=== PATIENT | male | born 1970 | race Two or more races ===

== ENCOUNTER 2016-03-11 01:54 | Emergency (ER) | payer OTHER ==
[~2016-03-11] VITALS: Ht 167.6 cm; Wt 81.6 kg
--- NOTE | 2016-03-11 02:14 | Emergency Room Report ---
History of Present Illness General Chief Complaint: Laceration Source: Patient, EMS Present Illness HPI Is a 45-year-old male with no significant past medical history he presents with chief complaint of head injury. he was at a [employer]. Is drinking tonight and bumped head with his . Fell backward hit his head on the ground. No loss of consciousness. He sustained a laceration to his scalp in left route area. Complaining of pain in that area. No other complaint. Allergies: Coded Allergies: No Known Allergies (Unverified , 03/11/16) Patient History Past Medical History: see triage record, old chart reviewed Past Surgical History: other Pertinent Family History: none Social History: Reports: alcohol use Immunizations: other Reviewed Nursing Documentation: PMH: Agreed, PSxH: Agreed Nursing Documentation-PMH Past Medical History: No Stated History Review of Systems Eye: Denies: blurred vision, eye pain ENT: Denies: ear pain, nose congestion, throat swelling Respiratory: Denies: cough, shortness of breath Cardiovascular: Denies: chest pain, palpitations Gastrointestinal: Denies: abdominal pain, diarrhea, nausea, vomiting Musculoskeletal: Denies: back pain, joint pain Skin: Denies: rash Neurological: Denies: headache, numbness Endocrine: Denies: increased thirst, increased urine Hematologic/Lymphatic: Denies: easy bruising All Other Systems: negative except mentioned in HPI Physical Exam Vital Signs Date Time Temp Pulse Resp B/P Pulse Ox O2 Delivery O2 Flow Rate FiO2 03/11/16 01:58 98.2 76 16 116/77 99 Room Air vitals normal Sp02 EP Interpretation: reviewed, normal General Appearance: well appearing, no apparent distress, alert Head: normocephalic, other - 5 cm lac to right parietal area. no fb. 3cm lac over left eyelid/eyebrow area. Eyes: left eye other - left periorbital echymosis. Visual acuity to left eye is grossly intact. He is able to see and count my fingers., bilateral eye EOMI , bilateral eye PERRL ENT: hearing grossly normal, normal pharynx Neck: full range of motion, supple, no meningismus Respiratory: chest non-tender, lungs clear, normal breath sounds Cardiovascular #1: regular rate, rhythm, no murmur Gastrointestinal: normal bowel sounds, non tender, no mass, no organomegaly, no bruit, non-distended Musculoskeletal: back normal, normal range of motion Neurologic: alert, oriented x3 Psychiatric: mood/affect normal Skin: warm/dry Procedures Critical Care Time Critical Care Time Critical care is mandated in this patient who presented with trauma and has a retrobulbar hematoma that can be eye sight threatening. Patient require my urgent intervention to attenuate the risks of loss of vision. Critical care time is 35 minutes excluding any reportable procedure. Critical care time included evaluation, multiple reevaluation, looking at old charts, interpreting laboratory and diagnostic data, discussing case with patient and family and consultants, and charting. Laceration/Wound Repair Laceration/Wound Repair : Consent: Verbal Wound Location: head, face Wound's Depth, Shape: linear Wound Length (cm): 7 Wound Explored: clean Irrigated w/ Saline (ccs): 1000 Betadine Prep?: Yes Anesthesia: 1% Lidocaine Volume Anesthetic (ccs): 1 Wound Repaired With: mayo Suture Size/Type: 6:0, proline Number of Sutures: 3 Sterile Dressing Applied?: Yes Patient Tolerated: Well Complications: None Progress Scalp laceration measuring 5 cm. I stapled it 6 mayo. Eyebrow laceration measuring 2 cm. I sutured it with 3 interrupted 6-0 Prolene sutures. Patient tolerated procedure without a problem. Medical Decision Making Diagnostic Impression: Primary Impression: Head injury, acute, without loss of consciousness Qualified Codes: S09.90XA - Unspecified injury of head, initial encounter Additional Impressions: Scalp laceration Qualified Codes: S01.01XA - Laceration without foreign body of scalp, initial encounter Periorbital hematoma of left eye HEMORRHAGE OF LEFT ORBIT Alcohol intoxication Qualified Codes: F10.120 - Alcohol abuse with intoxication, uncomplicated Laceration of left eyebrow without complication Qualified Codes: S01.112A - Laceration without foreign body of left eyelid and periocular area, initial encounter ER Course Patient present with a fall and head injury. He has evidence of retrobulbar hematoma. This can be a ophthalmologic emergency. I called [facility] for transfer. Initially a Dr. Ly called back but it was for his [place]. She will not be transferred. So far we have been waiting for them to call back. It did do not call back in a timely manner, will transfer to [place] for high level of care. CT/MRI/US Diagnostic Results CT/MRI/US Diagnostic Results : Imaging Test Ordered: CT head Impression read by radiologist. No intracranial bleed. Evidence of hematoma posterior to the left globe at the insertion of the optic nerve. Last Vital Signs Date Time Temp Pulse Resp B/P Pulse Ox O2 Delivery O2 Flow Rate FiO2 03/11/16 01:58 98.2 76 16 116/77 99 Room Air Status: improved Disposition: DISC/XFER TO [facility] Condition: Serious DOMINIK CERVANTES M.D. Mar 11, 2016 02:14
[2016-03-11] MEDS ORDERED: TdaP Vaccine 0.5ml Syr IM ONE (02:15)
[2016-03-11 02:16] VITALS: BP 116/77
[2016-03-11 03:00] VITALS: BP 111/76
[2016-03-11 04:00] VITALS: BP 107/70
[2016-03-11 04:04] LABS: MEAN CORPUSCULAR HEMOGLOBIN 32.2 PG (27.0-31.0); MEAN CORPUSCULAR VOLUME 92 FL (80-99); PLATELET COUNT 249 K/UL (150-450); RED CELL DISTRIBUTION WIDTH 11.2 % (11.6-14.8); WHITE BLOOD COUNT 15.3 K/UL (4.8-10.8)
[2016-03-11 04:09] LABS: INR 0.9 (0.9-1.1); PROTHROMBIN TIME 9.5 SEC (9.30-11.50)
[2016-03-11 04:14] LABS: ALCOHOL 203 mg/dL; ANION GAP 15 (5-15); CALCIUM 8.8 mg/dL (8.6-10.2); CARBON DIOXIDE 23 mEQ/L (20-30); CHLORIDE 102 mEQ/L (98-107); CREATININE 0.9 mg/dL (0.7-1.2); GLOMERULAR FILTRATION RATE > 60 mL/min (>60); HEMOLYSIS 4; POTASSIUM 3.8 mEQ/L (3.4-4.9); SODIUM 140 mEQ/L (135-145)
[2016-03-11 05:00] VITALS: BP 120/73
[2016-03-11] MEDS ORDERED: Morphine Sulfate 4mg/ml Inj IVP ONE (05:15)
[2016-03-11 05:47] VITALS: BP 120/73
[2016-03-11 08:10] LABS: BAND NEUTROPHILS % (MANUAL) 3 % (0-8); BASOPHILS % (MANUAL) 0 % (0-2); EOSINOPHILS % (MANUAL) 0 % (0-3); LYMPHOCYTES % (MANUAL) 3 % (20-45); NEUTROPHILS % (MANUAL) 89 % (45-75); PLATELET ESTIMATE ADEQUATE; PLATELET MORPHOLOGY NORMAL; TOTAL CELLS COUNTED 100
--- NOTE | 2016-03-18 10:31 | Diagnostic Imaging Report ---
Indications: Extra Technique: Spiral acquisitions obtained through the brain. Angled axial and coronal 5 x 5 mm slices were reconstructed. Total dose length product 1375 mGycm. CTDI vol(s) 70 mGy Comparison: None Findings: There is considerable left periorbital soft tissue contusion noted. There is also gas bubbles within the soft tissues consistent with penetrating trauma/laceration. There is also evidence of retroseptal blood within the left orbit, immediately posterior to the left optic globe. No underlying calvarial injury is demonstrated. There is minimal ethmoid sinus disease. There is also evidence of soft tissue contusion at the vertex of the scalp in the midline. Another area of soft tissue contusion is seen in the left posterior high parietal scalp. No acute intracranial hemorrhage or edema. No mass effect or midline shift. Normal crane-white differentiation. Normal size ventricles and extra-axial CSF spaces. Impression: Negative for acute intracranial bleed or mass effect Multiple areas of scalp soft tissue injury. Evidence of fairly extensive left periorbital soft tissue injury, including a component of retroseptal hematoma in the left orbit near the attachment of the optic nerve This agrees with the preliminary interpretation provided overnight by [facility]. The CT scanner at [facility] is accredited by the [employer] and the scans are performed using protocols designed to limit radiation exposure to as low as reasonably achievable to attain images of sufficient resolution adequate for diagnostic evaluation.
== END 2016-03-11 05:47 | disposition short-term general hospital (02) ==
LOC: EDBD 01:54 → EMR 03:08
DX: S01.81XA Laceration without foreign body of other part of head, initial encounter (principal); S01.112A Laceration without foreign body of left eyelid and periocular area, initial encounter; S01.01XA Laceration without foreign body of scalp, initial encounter; S05.12XA Contusion of eyeball and orbital tissues, left eye, initial encounter; W03.XXXA Other fall on same level due to collision with another person, initial encounter; Y92.89 Other specified places as the place of occurrence of the external cause; F10.129 Alcohol abuse with intoxication, unspecified; Z23 Encounter for immunization
CPT/HCPCS: 12002; 12011; 36415; 70450; 80048; 80300; 85007; 85025; 85610; 85730; 90471; 90715; 96361; 96374; 96375; 99291; G0480; J2270; J2405; 80329